=== PATIENT | male | born 1990 | race African-American/Black ===

== ENCOUNTER 2017-04-11 16:55 | Emergency (ER) | payer SELFPAY ==
[~2017-04-11] VITALS: Ht 172.7 cm; Wt 115.2 kg
[2017-04-11] MEDS ORDERED: VALTREX50 MG/ML PO (19:43)
[2017-04-11 20:24] VITALS: BP 186/121
== END 2017-04-11 20:25 | disposition home or self-care (01) ==
LOC: EME 16:55
DX: A60.02 Herpesviral infection of other male genital organs (principal); I10 Essential (primary) hypertension; Z72.0 Tobacco use
CPT/HCPCS: 99281; 99283

== ENCOUNTER 2017-05-18 12:54 | Emergency (ER) | payer SELFPAY ==
[~2017-05-18] VITALS: Ht 172.7 cm; Wt 112.5 kg
[~2017-05-18 12:54] MED LIST: VALTREX50 MG/ML PO
[2017-05-18 13:40] VITALS: BP 157/119
[2017-05-18] MEDS ORDERED: VALTREX1000 MG PO (16:42)
== END 2017-05-18 17:02 | disposition home or self-care (01) ==
LOC: EME 12:54
DX: A60.00 Herpesviral infection of urogenital system, unspecified (principal); F17.200 Nicotine dependence, unspecified, uncomplicated
CPT/HCPCS: 99281; 99284

== ENCOUNTER 2017-07-03 22:53 | Emergency (ER) | payer SELFPAY ==
[~2017-07-03] VITALS: Ht 172.7 cm; Wt 106.4 kg
[~2017-07-03 22:53] MED LIST changes: +VALTREX1000 MG PO
[2017-07-04 02:24] VITALS: BP 160/93
== END 2017-07-04 02:36 | disposition home or self-care (01) ==
LOC: EME 22:53
DX: J02.0 Streptococcal pharyngitis (principal); I10 Essential (primary) hypertension; F17.200 Nicotine dependence, unspecified, uncomplicated
CPT/HCPCS: 87081; 87651 90; 99281; 99284; J0561; J1100

== ENCOUNTER 2017-11-12 20:59 | Emergency (ER) | payer OTHER ==
[~2017-11-12] VITALS: Ht 172.7 cm; Wt 100.5 kg
[2017-11-12] MEDS ORDERED: PREDNISONE20 MG PO (22:25)
[2017-11-12] MEDS ORDERED: ZITHROMAX500 MG PO (22:25)
[2017-11-12 22:47] VITALS: BP 169/124
== END 2017-11-12 22:51 | disposition home or self-care (01) ==
LOC: EME 20:59
DX: J02.9 Acute pharyngitis, unspecified (principal); I10 Essential (primary) hypertension; F17.200 Nicotine dependence, unspecified, uncomplicated
CPT/HCPCS: 87651 90; 99281; 99283; J7512